=== PATIENT | male | born 1995 | race Caucasian/White ===

== ENCOUNTER 2019-07-05 02:29 | Emergency (ER) | payer BC ==
[~2019-07-05] VITALS: Ht 170.2 cm; Wt 68.0 kg
[~2019-07-05 02:29] MED LIST: BUTALB-ACETAMI1 EACH PO; HYDROCODON-ACE1 EAC7 PO; IMITREX 25 MG T25 M1 PO; LORTAB 7.5/5001 TA1 PO; NORCO 5-325 TA1 EAC1 PO; PROZAC; TOPAMAX25 M1 PO; ZOFRAN ODT4 MG PO
[2019-07-05 02:52] LABS: ABSOLUTE LYMPHOCYTES 0.9 thou/uL (0.8-5.3); ABSOLUTE MONOCYTES 0.8 thou/uL (0.0-1.2); ABSOLUTE NEUTROPHILS 5.9 thou/uL (1.6-8.1); BASOPHILS 0.3 %; EOSINOPHILS 0.3 %; HEMOGLOBIN 17.5 gm/dL (14.0-18.0); LYMPHOCYTES 11.8 %; MCH 30.4 pg (26.0-34.0); MCV 86.8 fL (80.0-100.0); MONOCYTES 10.4 %; MPV 8.1 fl. (7.2-11.1); NUCLEATED RBCS 0 /100WBC; PLATELET COUNT* 213 thou/uL (150-400); POLYS 77.2 %; RBC 5.76 mil/uL (4.50-6.00); RDW-CV 13.4 % (10.5-14.5); WBC 7.7 thou/uL (4.0-11.0)
[2019-07-05 02:56] LABS: CALCIUM 9.7 mg/dL (8.5-10.1); CREATININE 1.1 mg/dL (0.6-1.3); POTASSIUM 3.9 mmol/L (3.5-5.1)
[2019-07-05 03:05] LABS: ALBUMIN 4.7 g/dL (3.4-5.0); TOTAL BILIRUBIN 0.9 mg/dL (<0.1-1.0); TOTAL PROTEIN 8.7 g/dL (6.4-8.2)
[2019-07-05] MEDS ORDERED: ZOFRAN ODT4 MG PO (04:12)
[2019-07-05 04:53] VITALS: BP 137/72
== END 2019-07-05 04:53 | disposition home or self-care (01) ==
LOC: M.ERS 02:29
PROVIDERS: Emergency Medicine
DX: R10.84 Generalized abdominal pain (principal); R19.7 Diarrhea, unspecified; R11.2 Nausea with vomiting, unspecified; Z88.2 Allergy status to sulfonamides; E78.00 Pure hypercholesterolemia, unspecified; Z90.49 Acquired absence of other specified parts of digestive tract